=== PATIENT | male | born 1980 | race African-American/Black ===

== ENCOUNTER 2017-07-10 00:05 | Emergency (ER) | payer OTHER ==
--- NOTE | 2017-07-10 01:30 | ED ---
Laceration/Wound HPI - HPI Summary HPI Summary: Patient is an otherwise healthy 37-year-old male who presents from [address] [place] [address] with a 9 cm laceration to the right side of the neck. Endorses moderate amount of blood loss and slight dizziness. He states he was cut from behind while in the yard a few hours ago. He has not taken anything for pain and endorses 5 out of 10 pain to the laceration. He also endorses muscular pain with movement. The RN at [address] [place] [address] was able to gauze wrap it well and sent him for evaluation. He takes no medications and denies blood thinners. - History of Current Complaint Stated Complaint: NECK LACERATION Time Seen by Provider: 07/10/17 00:31 Hx Obtained From: Patient Mechanism of Injury: Sharp/Blunt Trauma Onset/Duration: Sudden Onset Aggravating: Movement Alleviating: Compression Timing: Constant Onset Severity: Mild Current Severity: Mild Pain Intensity: 6 Pain Scale Used: 0-10 Numeric - Allergy/Home Medications Allergies/Adverse Reactions: Allergies Allergy/AdvReac Type Severity Reaction Status Date / Time shellfish derived Allergy Anaphylatic Verified 07/10/17 00:09 Shock PMH/Surg Hx/FS Hx/Imm Hx Previously Healthy: Yes - Immunization History Hx Pertussis Vaccination: No Immunizations Up to Date: Unable to Obtain/Confirm Infectious Disease History: No Infectious Disease History: Denies: Traveled Outside the [place] in Last 30 Days - Social History Occupation: Unemployed Lives: With Family Alcohol Use: None Hx Substance Use: No Substance Use Type: Reports: None Hx Tobacco Use: No Smoking Status (MU): Never Smoked Tobacco Review of Systems Constitutional: Negative Negative: Fever, Chills, Fatigue Eyes: Negative Cardiovascular: Negative Respiratory: Negative Positive: no symptoms reported, see HPI Musculoskeletal: Negative Positive: Other - 9 cm laceration classified as deep Neurological: Negative All Other Systems Reviewed And Are Negative: Yes Physical Exam Triage Information Reviewed: Yes Vital Signs On Initial Exam: Initial Vitals Temp Pulse Resp BP Pulse Ox 97.6 F 73 14 156/104 98 07/10/17 00:09 07/10/17 00:09 07/10/17 00:09 07/10/17 00:09 07/10/17 00:09 Vital Signs Reviewed: Yes Appearance: Positive: Well-Appearing, Well-Nourished Skin: Positive: Warm, Skin Color Reflects Adequate Perfusion, Other - 9 cm laceration to the right side neck Head/Face: Positive: Normal Head/Face Inspection Neck: Positive: Tenderness @ - (Well while Right side of the neck over laceration Respiratory/Lung Sounds: Positive: Breath Sounds Present Cardiovascular: Positive: RRR, Pulses are Symmetrical in both Upper and Lower Extremities Musculoskeletal: Positive: Strength/ROM Intact Neurological: Positive: Speech Normal Psychiatric: Positive: Normal, Affect/Mood Appropriate Diagnostics - Vital Signs Vital Signs Temp Pulse Resp BP Pulse Ox 07/10/17 00:09 97.6 F 73 14 156/104 98 - Laboratory Result Diagrams: 07/10/17 04:33 07/10/17 01:45 Lab Statement: Any lab studies that have been ordered have been reviewed, and results considered in the medical decision making process. Laceration Repair Course/Dx - Course Course Of Treatment: Patient is evaluated for 9 cm length laceration to the right side of the neck. With is between 1 and 2 cm and varying in size. Bleeding is somewhat controlled with 2 noticeable small arterial vessel bleeds . The laceration is most prominently in zone 2 located directly over the carotid artery. He denies any difficulty breathing, swallowing. Denies any other injuries this date. Discussed the case with Dr. Weiss who suggests CTA of the neck and lab work to assess bleeding risk factors. 3 lena applied to control the bleeding, abdominal pad applied and wrapped with Coban. Signed out to Dr. Weiss while awaiting CTA results. - Differential Dx Differental Diagnoses: Laceration - Clinical Impression Provider Diagnoses: Laceration of neck Discharge - Discharge Plan Condition: Stable [facility] Referrals: Ariela TRUJILLO,Caitlin Nguyen [Primary Care Provider] -
[2017-07-10 02:04] LABS: ABS Basophils 0 10^3/ul (0-0.2); ABS Eosinophils 0 10^3/ul (0-0.6); ABS Lymphocytes 1.1 10^3/ul (1.0-4.8); ABS Monocytes 0.5 10^3/ul (0-0.8); ABS Neutrophils 7.3 10^3/ul (1.5-7.7); ABS Nucleated RBC 0 10^3/ul; Eosinophil % 0.2 % (0-6); Hematocrit 45 % (42-52); Hemoglobin 15.7 g/dl (14.0-18.0); Lymphocyte % 12.2 % (25-47); Mean Corpuscular HGB Conc 35 g/dl (31-36); Mean Corpuscular Hemoglobin 30 pg (27-31); Mean Corpuscular Volume 88 fL (80-94); Mean Platelet Volume 10 um3 (7.4-10.4); Nucleated Red Blood Cells % 0.1; Platelet Count 210 10^3/ul (150-450); Red Blood Count 5.18 10^6/ul (4.0-5.4); Red Cell Distribution Width 14 % (10.5-15); White Blood Count 8.9 10^3/ul (3.5-10.8)
[2017-07-10 02:19] LABS: INR 0.98 (0.77-1.02)
[2017-07-10] MEDS ORDERED: Iohexol 350* (CONTRAST) 500 ML MDV IV ONE (02:26)
[2017-07-10 02:36] LABS: EGFR Non-African American 70.1 (>60)
[2017-07-10 04:45] LABS: ABS Basophils 0 10^3/ul (0-0.2); ABS Eosinophils 0 10^3/ul (0-0.6); ABS Lymphocytes 1.3 10^3/ul (1.0-4.8); ABS Monocytes 0.6 10^3/ul (0-0.8); ABS Neutrophils 7.1 10^3/ul (1.5-7.7); ABS Nucleated RBC 0 10^3/ul; Eosinophil % 0.3 % (0-6); Hematocrit 45 % (42-52); Hemoglobin 15.4 g/dl (14.0-18.0); Lymphocyte % 14.4 % (25-47); Mean Corpuscular HGB Conc 35 g/dl (31-36); Mean Corpuscular Hemoglobin 30 pg (27-31); Mean Corpuscular Volume 88 fL (80-94); Mean Platelet Volume 10 um3 (7.4-10.4); Nucleated Red Blood Cells % 0.1; Platelet Count 208 10^3/ul (150-450); Red Blood Count 5.08 10^6/ul (4.0-5.4); Red Cell Distribution Width 14 % (10.5-15); White Blood Count 9.1 10^3/ul (3.5-10.8)
[2017-07-10 07:49] VITALS: BP 137/99
--- NOTE | 2017-07-10 19:14 | RAD ---
CPT II: CPT II Codes: 3100F INDICATION: Right neck laceration from razor COMPARISON: None TECHNIQUE: A CT angiogram of the neck was performed with 80 cc of Omnipaque 350. Contiguous axial sections were obtained from the thoracic inlet through the mid-level calvarium. Images were reconstructed in the sagittal, coronal planes and in a 3-D volume rendered format. The distal cervical internal carotid artery diameter is used as the denominater for stenosis measurement. CTA NECK: Overlying the angle of the right mandible are superficial surgical lena indicating the site of laceration. In the subcutaneous tissue there is a heterogeneous collection including a focus of hyper attenuating contrast measuring 6 x 15 mm in the axial plane and approximately 7 mm in the cephalocaudal projection. The common and internal carotid arteries are patent without hemodynamically significant stenosis. Right: Below the carotid bifurcation the common carotid artery measures 7 mm in diameter. Above the bifurcation the internal carotid artery measures 7 mm in diameter yielding 0% degree stenosis. Left: Below the carotid bifurcation the common carotid artery measures 9 mm in diameter. Above the bifurcation the internal carotid artery measures 9 mm in diameter yielding 0% degree stenosis. The vertebral arteries are patent without gross abnormality. IMPRESSION: Evidence of laceration overlying the right angle of the mandible. There is subcutaneous heterogeneous material including hyperattenuating focus suggesting the presence of active arterial extravasation.
== END 2017-07-10 07:59 | disposition short-term general hospital (02) ==
LOC: ED 00:05
DX: S11.91XA Laceration without foreign body of unspecified part of neck, initial encounter (principal); X99.9XXA Assault by unspecified sharp object, initial encounter; Y92.147 Courtyard of prison as the place of occurrence of the external cause
CPT/HCPCS: 12001; 36415; 70498; 80053; 85025; 85610; 85730; 86850; 86900; 86901; 99284; Q9967